=== PATIENT | female | born 1995 | race Caucasian/White ===

== ENCOUNTER 2017-08-01 18:52 | Emergency (ER) | payer MEDICAID ==
[~2017-08-01] VITALS: Ht 157.5 cm; Wt 61.4 kg
[2017-08-01] MEDS ORDERED: DEXAMETHASONE 4 MG TABLET PO ONE (20:00)
[2017-08-01] MEDS ORDERED: PENICILLIN G BENZATHINE LA 1,200,000 UNITS/2 ML SYRINGE IM ONE (20:00)
[2017-08-01 20:26] VITALS: BP 112/61
== END 2017-08-01 20:51 | disposition home or self-care (01) ==
LOC: EMS 18:53
DX: J03.90 Acute tonsillitis, unspecified (principal); H92.03 Otalgia, bilateral
CPT/HCPCS: 96372; 99283; J0561; J8540

== ENCOUNTER 2020-06-08 17:36 | Emergency (ER) | payer MEDICAID ==
[~2020-06-08] VITALS: Ht 157.5 cm; Wt 75.0 kg
[2020-06-08 18:13] LABS: BASOPHILS % (AUTO) 0.3 % (0.0-2.0); HEMATOCRIT 40.7 % (36-46); HEMOGLOBIN 13.5 g/dL (12.0-16.0); LYMPHOCYTES # (AUTO) 2.3 K/uL (1.0-4.8); LYMPHOCYTES % (AUTO) 23.7 % (22.0-44.0); MEAN CORPUSCULAR HEMOGLOBIN 30.1 pg (26.0-34.0); MEAN CORPUSCULAR HGB CONC 33.1 G/dL (31.0-37.0); MEAN CORPUSCULAR VOLUME 91 fL (80-100); MONOCYTES # (AUTO) 0.6 K/uL (0.1-1.0); MONOCYTES % (AUTO) 6.8 % (2.0-9.0); NEUTROPHILS # (AUTO) 6.4 K/uL (1.8-7.7); NEUTROPHILS % (AUTO) 67.2 % (40.0-70.0); PLATELET COUNT (AUTO) 247 K/uL (150-450); RED BLOOD CELL COUNT(AUTO) 4.48 MIL/uL (4.00-5.20); RED CELL DISTRIBUTION WIDTH 13.2 % (11.5-14.5)
[2020-06-08 18:20] LABS: ANION GAP 5 mmol/L (8-16); CALCIUM, TOTAL 8.7 mg/dL (8.8-10.5); CARBON DIOXIDE 32 mmol/L (22-29); CHLORIDE 105 mmol/L (98-107); CREATININE 0.91 mg/dL (0.60-1.30); GLOMERULAR FILTR. RATE CALC > 60 mL/min (>60); GLUCOSE,RANDOM 92 mg/dL (70-110); POTASSIUM 3.7 mmol/L (3.5-5.1); SODIUM SERUM 142 mmol/L (136-145); UREA NITROGEN, BLOOD 14 mg/dL (7-18)
[2020-06-08 18:26] LABS: ALANINE AMINOTRANSFERASE 16 U/L (12-78); ALBUMIN 3.7 g/dL (3.4-5.0); ALKALINE PHOSPHATASE 69 U/L (46-116); ASPARTATE AMINOTRANSFERASE 15 U/L (15-37); BILIRUBIN,TOTAL 0.8 mg/dL (0.1-1.0); TOTAL PROTEIN, SERUM 7.3 g/dL (6.4-8.2)
[2020-06-08] MEDS ORDERED: SODIUM CHLORIDE 0.9% 1,000 ML IV ONE (18:45)
[2020-06-08] MEDS ORDERED: ACETAMINOPHEN 325 MG TABLET PO ONE (18:45)
[2020-06-08] MEDS ORDERED: ONDANSETRON HCL 4 MG/2 ML VIAL IVP ONE (18:45)
[2020-06-08 19:05] LABS: GLUCOSE,POINT OF CARE 92 MG/DL (70-110)
[2020-06-08] MEDS ORDERED: DiphenhydrAMINE HCL 50 MG/ML VIAL IVP STA (20:16)
[2020-06-08] MEDS ORDERED: MethylPREDNISolone SOD SUCC 125 MG/2 ML VIAL IVP ONE (20:30)
[2020-06-08] MEDS ORDERED: KETOROLAC TROMETHAMINE 30 MG/ML VIAL IVP ONE (20:30)
[2020-06-08] MEDS ORDERED: METOCLOPRAMIDE HCL 5 MG/ML 2 ML VIAL IVP ONE (20:30)
[2020-06-08 22:00] VITALS: BP 119/68
== END 2020-06-08 22:06 | disposition home or self-care (01) ==
LOC: EMS 17:43
DX: R51 Headache (principal); R42 Dizziness and giddiness; R11.0 Nausea; R55 Syncope and collapse; F32.9 Major depressive disorder, single episode, unspecified
CPT/HCPCS: 36415; 70450; 80053; 81002; 81025; 82962; 85025; 93005; 96361; 96374; 96375; 99285; J1200; J1885; J2405; J2765; J2930; J7030; 82948

== ENCOUNTER 2021-01-24 15:08 | Emergency (ER) | payer MEDICAID ==
[~2021-01-24] VITALS: Ht 157.5 cm; Wt 81.8 kg
[2021-01-24] MEDS ORDERED: ACETAMINOPHEN 500 MG TABLET PO ONE (15:45)
[2021-01-24] MEDS ORDERED: BACITRACIN 0.9 GM PACKET OINTMENT TP ONE (15:45)
[2021-01-24] MEDS ORDERED: PERTUSS(ACELL),DIPH,TET VAC/PF 0.5 ML VIAL IM ONE (16:15)
[2021-01-24 16:46] VITALS: BP 110/65
== END 2021-01-24 17:00 | disposition home or self-care (01) ==
LOC: EMS 15:08
DX: S83.92XA Sprain of unspecified site of left knee, initial encounter (principal); W19.XXXA Unspecified fall, initial encounter; Y93.89 Activity, other specified; Y92.89 Other specified places as the place of occurrence of the external cause; Y99.8 Other external cause status
CPT/HCPCS: 90471; 90715; 99283

== ENCOUNTER 2025-07-04 02:44 | Emergency (ER) | payer MEDICAID ==
[~2025-07-04] VITALS: Ht 160 cm; Wt 68.2 kg
[~2025-07-04 02:44] MED LIST: DOCU-385 PO; HYDR-4062 PO; LEVO-72 PO
[2025-07-04] MEDS: ONDANSETRON 4 MG TABLET PO ONE (05:01)
[2025-07-04 05:24] LABS: PLATELET COUNT (AUTO) 264 K/uL (150-450); RED BLOOD CELL COUNT(AUTO) 4.29 MIL/uL (4.00-5.20); RED CELL DISTRIBUTION WIDTH 13.4 % (11.5-14.5); WHITE BLOOD COUNT (AUTO) 10.3 K/uL (4.5-11.0)
[2025-07-04 05:35] LABS: CALCIUM, TOTAL 8.7 mg/dL (8.8-10.5); CREATININE 0.77 mg/dL (0.60-1.30); GLOMERULAR FILTR. RATE CALC > 60 mL/min (>60); GLUCOSE,RANDOM 97 mg/dL (70-110); SODIUM SERUM 138 mmol/L (136-145); UREA NITROGEN, BLOOD 15 mg/dL (7-18)
[2025-07-04 06:02] VITALS: BP 92/58; PULSE 60; RESP 16; TEMP 98.4; O2SAT 99
[2025-07-04] MEDS: ACETAMINOPHEN 500 MG TABLET PO ONE (06:35)
== END 2025-07-04 06:46 | disposition home or self-care (01) ==
LOC: EMS 02:57
DX: S06.0XAA Concussion with loss of consciousness status unknown, initial encounter (principal); S16.1XXA Strain of muscle, fascia and tendon at neck level, initial encounter; S39.012A Strain of muscle, fascia and tendon of lower back, initial encounter; F32.A Depression, unspecified; G44.309 Post-traumatic headache, unspecified, not intractable; Z88.0 Allergy status to penicillin; Z79.899 Other long term (current) drug therapy; Y04.0XXA Assault by unarmed brawl or fight, initial encounter; Y93.89 Activity, other specified; Y92.89 Other specified places as the place of occurrence of the external cause; Y99.8 Other external cause status
CPT/HCPCS: 99284; 70450; 80048; 84703; 85025; 36415; 72125; 72131; Q0162

== ENCOUNTER 2025-08-27 14:30 | Emergency (ER) | payer MEDICAID ==
[~2025-08-27] VITALS: Ht 160 cm; Wt 71.4 kg
[2025-08-27 14:53] VITALS: TEMP 98.1
[2025-08-27 15:50] LABS: PLATELET COUNT (AUTO) 260 K/uL (150-450); RED BLOOD CELL COUNT(AUTO) 4.59 MIL/uL (4.00-5.20); RED CELL DISTRIBUTION WIDTH 13.5 % (11.5-14.5); WHITE BLOOD COUNT (AUTO) 7.4 K/uL (4.5-11.0)
[2025-08-27 15:58] LABS: CALCIUM, TOTAL 8.4 mg/dL (8.8-10.5); CREATININE 0.62 mg/dL (0.60-1.30); GLOMERULAR FILTR. RATE CALC > 60 mL/min (>60); GLUCOSE,RANDOM 86 mg/dL (70-110); SODIUM SERUM 140 mmol/L (136-145); UREA NITROGEN, BLOOD 12 mg/dL (7-18)
[2025-08-27 16:06] LABS: APPEARANCE,URINE CLEAR (CLEAR); GLUCOSE, URINE (UA) NEGATIVE (NEGATIVE); LEUKOCYTE ESTERASE ,URINE NEGATIVE (NEGATIVE); NITRATE,URINE NEGATIVE (NEGATIVE); OCCULT BLOOD,URINE SMALL (NEGATIVE); SPECIFIC GRAVITIY, URINE 1.029 (1.003-1.030)
[2025-08-27] MEDS: ONDANSETRON HCL 4 MG/2 ML VIAL IVP ONE (16:08)
[2025-08-27] MEDS: SODIUM CHLORIDE 0.9% 1,000 ML IV ONE (16:09)
[2025-08-27] MEDS: ACETAMINOPHEN 500 MG TABLET PO ONE (16:09)
[2025-08-27 16:26] LABS: TROPONIN I-HIGH SENSITIVITY 4 ng/L (<51)
[2025-08-27 16:52] LABS: LACTIC ACID 1.7 mmol/L (0.4-2.0)
[2025-08-27 17:22] LABS: ASPARTATE AMINOTRANSFERASE 16 U/L (15-37); TOTAL PROTEIN, SERUM 6.8 g/dL (6.4-8.2)
[2025-08-27 18:00] VITALS: BP 112/68; PULSE 65; RESP 18; O2SAT 98
[2025-08-27 18:28] LABS: SQUAMOUS EPITHELIAL CELL,UR Few /LPF (None Seen)
[2025-08-27] MEDS ORDERED: IOHEXOL 300 MG/ML 100 ML VIAL ONE (19:59)
[2025-08-27] MEDS ORDERED: SODIUM CHLORIDE 0.9% 100 ML ONE (19:59)
[2025-08-27] MEDS ORDERED: 0.9% SODIUM CHLORIDE 10 ML SYRINGE IVP ONE (19:59)
[2025-08-27] MEDS ORDERED: DOXY-354 PO (20:17)
[2025-08-27] MEDS: DOXYCYCLINE HYCLATE 100 MG TABLET PO ONE (21:17)
== END 2025-08-27 22:04 | disposition home or self-care (01) ==
LOC: EMS 14:32
DX: R30.0 Dysuria (principal); N89.8 Other specified noninflammatory disorders of vagina; F32.A Depression, unspecified; Z79.899 Other long term (current) drug therapy; Z88.0 Allergy status to penicillin; Z11.3 Encounter for screening for infections with a predominantly sexual mode of transmission
CPT/HCPCS: 99285; 74177; 96365; 76830; 76856; 96375; 86592; 80048; 80076; 81001; 83605; 84484; 84703; 85025; 87210; 87491; 87591; 93005; 87389; 36415; J0696; J2405; J7060; J7030; J7050; Q9967